=== PATIENT | female | born 2005 | race Caucasian/White ===

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

== ENCOUNTER 2024-05-16 16:28 | Emergency (ER) | payer OTHER ==
[~2024-05-16] VITALS: Ht 165.1 cm; Wt 81.8 kg
[~2024-05-16 16:28] MED LIST: ATARAX 10MG10 MG/TAB PO; QUETIAPINE FUM150 MG PO; SERTRALINE HYD100 MG PO
[2024-05-16] MEDS ORDERED: Ondansetron 4 MG/2 ML VIAL IV ONE (16:45)
[2024-05-16] MEDS ORDERED: NS 1,000 ML IV SCH ×2 (16:45→19:45)
[2024-05-16 17:00] LABS: BASO # 0.02 K/mm3 (0.02-0.10); EOS # 0.06 K/mm3 (0.04-0.40); EOS % 1.1 % (0.1-4.0); HEMATOCRIT 40.8 % (35.0-45.0); HEMOGLOBIN 13.9 g/dL (12.0-15.0); LYMPH# 2.26 K/mm3 (1.20-3.40); MEAN CELL VOLUME 82 fl (78-95); MEAN CORPUSCULAR HEMOGLOBIN 28 pg (26-32); MEAN CORPUSCULAR HGB CONC 34 g/dL (33-37); MEAN PLATELET VOLUME 9.8 fl (7.4-10.4); MONO # 0.44 K/mm3 (0.10-0.60); NEU # 2.64 K/mm3 (1.40-6.50); PLATELET COUNT 235 K/mm3 (130-400); RED BLOOD COUNT 4.97 M/mm3 (4.10-5.30); RED CELL DISTRIBUTION WIDTH 12.9 % (11.5-14.5); WHITE BLOOD COUNT 5.4 K/mm3 (4.8-10.8)
[2024-05-16 17:06] LABS: ALBUMIN 4.7 g/dL (3.5-5.0); SODIUM 140 mmol/L (136-145)
[2024-05-16 17:07] LABS: CALCIUM 9.6 mg/dL (8.3-10.5)
[2024-05-16 17:08] LABS: GLUCOSE 112 mg/dL (65-105); TOTAL PROTEIN 7.8 g/dL (6.4-8.3)
[2024-05-16 17:09] LABS: CARBON DIOXIDE 18 mmol/L (22-29)
[2024-05-16 17:10] LABS: TOTAL BILIRUBIN 0.5 mg/dL (0.2-1.2)
[2024-05-16 17:14] LABS: AST-SGOT 22 U/L (5-34)
[2024-05-16 17:15] LABS: ALT/SGPT 22 U/L (0-55)
[2024-05-16 17:17] LABS: ACETAMINOPHEN < 1.0 ug/mL (< 10.0); ALCOHOL IN-HOUSE < 10 mg/dL (<10)
[2024-05-16] MEDS ORDERED: Dextrose/Magnesium Sulfate 100 ML IV ONE (17:45)
[2024-05-16 22:06] VITALS: BP 112/59
== END 2024-05-16 22:28 | disposition short-term general hospital (02) ==
LOC: ED 16:28
PROVIDERS: Physician Assistant
DX: T43.221A Poisoning by selective serotonin reuptake inhibitors, accidental (unintentional), initial encounter (principal); E83.42 Hypomagnesemia; R00.0 Tachycardia, unspecified
CPT/HCPCS: J2405; J3475; J7030

== ENCOUNTER → 2024-05-26 | Outpatient (CLI) | payer OTHER ==
[2024-05-26 14:49] LABS: ALBUMIN 4.9 g/dL (3.5-5.0)
[2024-05-26 14:51] LABS: CALCIUM 9.9 mg/dL (8.3-10.5)
[2024-05-26 14:52] LABS: TOTAL PROTEIN 8.2 g/dL (6.4-8.3)
[2024-05-26 14:54] LABS: TOTAL BILIRUBIN 0.5 mg/dL (0.2-1.2)
[2024-05-26 14:58] LABS: MAGNESIUM 1.89 mg/dL (1.70-2.20)
[2024-05-26 23:54] LABS: T3 FREE 3.2 pg/mL (1.7-3.7)
== END ==
LOC: LAB 14:26
PROVIDERS: Internal Medicine
DX: K90.9 Intestinal malabsorption, unspecified (principal); F32.9 Major depressive disorder, single episode, unspecified